=== PATIENT | female | born 1970 | race Caucasian/White ===

== ENCOUNTER 2017-07-13 21:28 | Emergency (ER) | payer OTHER ==
[2017-07-13] MEDS ORDERED: Oxycodone/Acetaminophen 5/325 mg Tab PO STA (21:36)
[2017-07-13 21:39] VITALS: BMI 30.7
--- NOTE | 2017-07-13 21:48 | ED PDOC ---
Arrival/HPI - General Time Seen by Provider: 07/13/17 21:36 - History of Present Illness Narrative History of Present Illness (Text): 07/13/17 21:45 Patient is a 47 y/o F presenting with R foot pain. Patient reports that while at work today she dropped a chair on her R foot. She reports that she ambulated home without issue. She reports that the foot has become progressive more swollen and painful so she presented to ED. Denies other trauma. Past Medical History - Infectious Disease Hx of Infectious Diseases: None - Tetanus Immunization Tetanus Immunization: Unknown - Cardiac Hx Hypertension: Yes - Pulmonary Hx Respiratory Disorders: No Hx Asthma: No Hx Bronchitis: No Hx Chronic Obstructive Pulmonary Disease (COPD): No Hx Emphysema: No Hx Pneumonia: No Hx Respiratory Aspiration: No Hx Respiratory Tract Infection: No Hx Sleep Apnea: No Hx Tuberculosis: No - Neurological Hx Neurological Disorder: No Hx Alzheimer's Disease: No HX Cerebrovascular Accident: No Hx Dementia: No Hx Dizziness: No Hx Meningitis: No Hx Migraine: No Hx Parkinson's Disease: No Hx Seizures: No Hx Transient Ischemic Attacks (TIA): No - HEENT Hx HEENT Disorder: No Hx Blind: No Hx Cataracts: No Hx Deafness: No Hx Difficulty Chewing: No Hx Epistaxis: No Hx Glaucoma: No Hx Macular Degeneration: No - Renal Hx Renal Disorder: No Hx Dialysis: No Hx Kidney Stones: No Hx Neurogenic Bladder: No Hx Pyelonephritis: No Hx Renal Cancer: No Hx Renal Failure: No - Endocrine/Metabolic Hx Diabetes Mellitus Type 2: Yes - Hematological/Oncological Hx Blood Disorders: No Hx AIDS: No Hx Anemia: No Hx Cancer: No Hx Chemotherapy: No Hx Cirrhosis: No Hx Hemophilia: No Hx Hepatitis A: No Hx Hepatitis B: No Hx Hepatitis C: No Hx Metastasis: No Hx Shingles: No Hx Sickle Cell Disease: No Hx Unexplained Bleeding: No - Integumentary Hx Dermatological Disorder: No Hx Basal Cell Carcinoma: No Hx Eczema: No Hx Melanoma: No Hx Psoriasis: No Hx Squamous Cell Carcinoma: No - Musculoskeletal/Rheumatological Hx Falls: Yes - Gastrointestinal Hx Gastrointestinal Disorders: No Hx Colostomy: No Hx Crohn's Disease: No Hx Diverticulitis: No Hx Gall Bladder Disease: No Hx Gastroesophageal Reflux: No Hx Gastrointestinal Ulcer: No Hx Ileostomy: No Hx Liver Failure: No Hx Pancreatitis: No HX Swallowing Problems: No - Genitourinary/Gynecological Hx Genitourinary Disorders: No Hx Hematuria: No Hx Incontinence: No Hx Prostate Problems: No Hx Sexually Transmitted Diseases: No Hx Urinary Tract Infection: No - Psychiatric Hx Psychophysiologic Disorder: No Hx Anxiety: No Hx Bipolar Disorder: No Hx Depression: No Hx Emotional Abuse: No Hx Hallucinations: No Hx Panic Disorder: No Hx Post Traumatic Stress Disorder: No Hx Psychosis: No Hx Physical Abuse: No Hx Schizophrenia: No Hx Sexual Abuse: No Hx Substance Use: No - Past Surgical History Past Surgical History: No Previous - Surgical History Hx Amputation: No Hx Appendectomy: No Hx Cardiac Catheterization: No Hx Cholecystectomy: No Hx Coronary Stent: No Hx Gastric Bypass Surgery: No Hx Hysterectomy: No Hx Joint Replacement: No Hx Kidney Transplant: No Hx Liver Transplant: No Hx Mastectomy: No Hx Musculoskeletal Surgery: No Hx Open Heart Surgery: No Hx Orthopedic Surgery: No Hx Splenectomy: No Hx Valve Replacement: No - Anesthesia Hx Anesthesia: Yes Hx Anesthesia Reactions: No Hx Malignant Hyperthermia: No - Suicidal Assessment Feels Threatened In Home Enviroment: No Family/Social History Family/Social History: No Known Family HX Smoking Status: Never Smoked Hx Alcohol Use: No Hx Substance Use: No Hx Substance Use Treatment: No Allergies/Home Meds Allergies/Adverse Reactions: Allergies No Known Allergies Allergy (Verified 07/13/17 21:32) Home Medications: Home Meds Medication Instructions Recorded Confirmed Diclofenac Sodium [Voltaren] 75 mg PO DAILY 07/13/17 07/13/17 Enalapril Maleate [Vasotec] 5 mg PO DAILY 07/13/17 07/13/17 Ergocalciferol (Vitamin D2) 1.25 mg PO DAILY 07/13/17 07/13/17 [Vitamin D2] Glimepiride [amaRYL] 2 mg PO BID 07/13/17 07/13/17 Review of Systems - Review of Systems Constitutional: absent: Fatigue, Weight Change, Fevers Respiratory: absent: SOB, Cough, Sputum, Wheezing Cardiovascular: absent: Chest Pain Gastrointestinal: absent: Abdominal Pain, Constipation, Diarrhea, Nausea, Vomiting Musculoskeletal: Arthralgias, Joint Swelling, Other (r foot pain). absent: Back Pain Skin: absent: Laceration Neurological: absent: Headache, Dizziness Physical Exam Vital Signs Temp Pulse Resp BP Pulse Ox 07/13/17 21:42 98.2 F 78 16 137/90 100 Temperature: Afebrile Blood Pressure: Normal Pulse: Regular Respiratory Rate: Normal Appearance: Positive for: Well-Appearing, Non-Toxic, Comfortable Pain Distress: None Mental Status: Positive for: Alert and Oriented X 3 - Systems Exam Head: Present: Atraumatic, Normocephalic Pupils: Present: PERRL Extroacular Muscles: Present: EOMI Conjunctiva: Present: Normal Mouth: Present: Moist Mucous Membranes Lower Extremity: Present: Normal ROM, Tenderness, Neurovascularly Intact, Other (RLE: normal ROM at knee and ankle. no tenderness. Tenderness to dorsum of R foot. distal pulses intact. no deformity). No: Deformity Psychiatric: Present: Alert, Oriented x 3 Medical Decision Making ED Course and Treatment: 07/13/17 21:53 Will get xray to r/o fracture and give pain medication 07/13/17 22:27 Xray R foot negative for fracture. Patient's foot placed in teresa wrap. Instructed to rest, ice, compress and elevate. Instructed to take motrin for pain and follow-up with PMD - RAD Interpretation Radiology Orders: 07/13/17 21:36 FOOT RIGHT 3 VIEWS ROUTINE [RAD] Stat - Medication Orders Current Medication Orders: Discontinued Medications Oxycodone/Acetaminophen (Percocet 5/325 Mg Tab) 1 tab PO STAT STA Stop: 07/13/17 21:37 Last Admin: 07/13/17 22:09 Dose: 1 tab MAR Pain Assessment Document 07/13/17 22:09 SOPHIA (Rec: 07/13/17 22:09 SOPHIA [id number]) Pain Reassessment Is this a pain reassessment? No Disposition/Present on Arrival - Present on Arrival Any Indicators Present on Arrival: No History of DVT/PE: No History of Uncontrolled Diabetes: No Urinary Catheter: No History of Decub. Ulcer: No History Surgical Site Infection Following: None - Disposition Have Diagnosis and Disposition been Completed?: Yes Diagnosis: Foot contusion Disposition: HOME/ ROUTINE Disposition Time: 22:28 Patient Plan: Discharge Patient Problems: Current Active Problems Problem Status Onset Foot contusion Acute Condition: GOOD Discharge Instructions (ExitCare): Arthralgia (ED) Additional Instructions: Follow-up with PMD within 2 days. Motrin for pain. Ice to area. Return to ED if condition worsens. [facility], [Primary Care Provider] - Follow up with primary
[2017-07-13 21:49] VITALS: BP 137/90; PULSE 78; RESP 16; TEMP 98.2; O2SAT 100
--- NOTE | 2017-07-13 22:32 | RAD ---
EXAM: XR Right Foot Complete, 3 or More Views CLINICAL HISTORY: 47 years old, female; Injury or trauma; Fall; Initial encounter; Sprain or strain; Foot; Right; Additional info: Foot pain TECHNIQUE: Frontal, lateral and oblique views of the right foot. COMPARISON: No relevant prior studies available. FINDINGS: Bones/joints: No acute fracture. No dislocation. Calcaneal spur is detected. Soft tissues: No radiopaque foreign body. IMPRESSION: No acute fracture.
== END 2017-07-13 22:54 | disposition home or self-care (01) ==
LOC: ED 21:28
DX: S90.31XA Contusion of right foot, initial encounter (principal); W20.8XXA Other cause of strike by thrown, projected or falling object, initial encounter; Y99.0 Civilian activity done for income or pay; E11.9 Type 2 diabetes mellitus without complications; I10 Essential (primary) hypertension